=== PATIENT | female | born 1990 | race Native Hawaiian/Other Pacific Islander ===

== ENCOUNTER → 2018-10-14 | Outpatient (CLI) | payer OTHER ==
[2018-10-14 08:26] LABS: HEMATOCRIT 45.3 % (36.0-47.0); HEMOGLOBIN 14.8 g/dl (12.0-15.5); MEAN CORPUSCULAR HEMOGLOBIN 29.7 pg (27.0-33.0); MEAN CORPUSCULAR HGB CONC 32.7 g/dl (32.0-36.5); MEAN CORPUSCULAR VOLUME 90.8 fl (80.0-96.0); PLATELET COUNT, AUTOMATED 306 10^3/uL (150-450); RED BLOOD COUNT 4.99 10^6/uL (4.00-5.40)
[2018-10-14 08:55] LABS: ALBUMIN 3.8 GM/DL (3.2-5.2); ALT/SGPT 23 U/L (12-78); BILIRUBIN,TOTAL 0.7 MG/DL (0.2-1.0); BLOOD UREA NITROGEN 18 MG/DL (7-18); CALCIUM LEVEL 8.6 MG/DL (8.5-10.1); CARBON DIOXIDE LEVEL 30 MEQ/L (21-32); CHLORIDE LEVEL 103 MEQ/L (98-107); CHOLESTEROL LEVEL 210 MG/DL (<200); CHOLESTEROL RISK RATIO 2.837 (<5); CREATININE FOR GFR 0.71 MG/DL (0.55-1.30); FREE T3 2.6 PG/ML (2.2-4.0); FREE T4 1.11 NG/DL (0.76-1.46); GLOMERULAR FILTRATION RATE > 60.0 (>60); GLUCOSE, FASTING 103 MG/DL (70-100); HDL CHOLESTEROL 74 MG/DL (>40); LDL CHOLESTEROL 121 MG/DL (<100); NON-HDL-C 136 MG/DL; POTASSIUM SERUM 4.8 MEQ/L (3.5-5.1); SODIUM LEVEL 137 MEQ/L (136-145); THYROID STIMULATING HORMONE 0.208 uIU/ML (0.358-3.740); TOTAL PROTEIN 7.4 GM/DL (6.4-8.2); TRIGLYCERIDES LEVEL 75 MG/DL (<150)
--- NOTE | 2018-10-15 08:53 | REP ---
Clinical: Thyroid abnormality otherwise unspecified. Technique: Real time marcial scale and color ultrasound examination using linear high frequency and curved array transducers. Findings: The thyroid gland is relatively normal in contour, size, echogenicity. Isthmus measures 2.6 mm in width. Right lobe measures 5.0 x 1.6 x 1.7 cm and includes 5.8 x 3.9 x 5.3 mm and 6.4 x 6.0 x 4.8 mm hypoechoic mid/lower pole nodules which are otherwise nonspecific in appearance. Left thyroid lobe measures 4.5 x 1.7 x 1.3 cm without nodular or cystic changes. Impression: Two nonspecific vague hypoechoic/isoechoic nodules in the right lobe. Electronically Signed by Wilmer Fall MD 10/15/2018 08:44 A
== END ==
LOC: M RAD 07:10
PROVIDERS: ATTEND Family Medicine
DX: E04.1 Nontoxic single thyroid nodule (principal); N91.1 Secondary amenorrhea; I10 Essential (primary) hypertension; E78.00 Pure hypercholesterolemia, unspecified; E07.9 Disorder of thyroid, unspecified

== ENCOUNTER → 2019-01-24 | Outpatient (REF) | payer OTHER ==
[2019-01-24 13:39] LABS: APPEARANCE, URINE CLEAR (CLEAR); BACTERIA, URINE AUTO 1+ (NEGATIVE); BILIRUBIN, URINE AUTO NEGATIVE (NEGATIVE); BLOOD, URINE BLOOD 1+ (NEGATIVE); COLOR, URINE YELLOW (YELLOW); GLUCOSE, URINE (UA) AUTO NEGATIVE (NEGATIVE); KETONE, URINE AUTO NEGATIVE (NEGATIVE); LEUKOCYTE ESTERASE, URINE AUTO NEGATIVE (NEGATIVE); NITRITE, URINE AUTO NEGATIVE (NEGATIVE); PROTEIN, URINE AUTO NEGATIVE (NEGATIVE); RBC, URINE AUTO 0 /HPF (0-3); SPECIFIC GRAVITY URINE AUTO 1.005 (1.002-1.035); SQUAMOUS EPITHELIAL CELL UR AU 5 /HPF (0-6); UROBILINOGEN, URINE AUTO 0.2 mg/dL (0.0-2.0); WBC, URINE AUTO 0 /HPF (0-3)
== END ==
LOC: M LAB REF 13:11
PROVIDERS: ATTEND Nurse Practitioner Family
DX: R30.0 Dysuria (principal)

== ENCOUNTER → 2019-01-26 | Outpatient (CLI) | payer OTHER ==
[2019-01-26 18:08] LABS: HEMATOCRIT 45.6 % (36.0-47.0); HEMOGLOBIN 14.6 g/dl (12.0-15.5); MEAN CORPUSCULAR HEMOGLOBIN 29.7 pg (27.0-33.0); MEAN CORPUSCULAR VOLUME 92.7 fl (80.0-96.0); PLATELET COUNT, AUTOMATED 293 10^3/uL (150-450); RED BLOOD COUNT 4.92 10^6/uL (4.00-5.40); WHITE BLOOD COUNT 7.1 10^3/uL (4.0-10.0)
[2019-01-26 18:19] LABS: C REACTIVE PROTEIN QUANTITATIV < 0.30 MG/DL (0.00-0.30); HCG, SERUM QUANTITATIVE < 1.0 MIU/ML
[2019-01-26 19:09] LABS: ERYTHROCYTE SEDIMENTATION RATE 5 mm/hr (0-20)
== END ==
LOC: M LAB 16:20
PROVIDERS: ATTEND Family Medicine
DX: R91.8 Other nonspecific abnormal finding of lung field (principal)

== ENCOUNTER → 2019-01-27 | Outpatient (CLI) | payer OTHER ==
--- NOTE | 2019-01-27 11:27 | REP ---
PELVIC SONOGRAPHY: HISTORY: Lower abdominal pain. Pelvic and perineal pain. FINDINGS: Transabdominal and transvaginal scanning are included. Uterine dimensions are normal measured at 7.9 x 3.4 x 4.7 cm. There is a trace of endocervical fluid. Endometrial echo 0.4 cm thick. An IUD is seen in place in the uterine endometrium in what appears to be good position. Minimal of cul-de-sac fluid is noted consistent with physiologic fluid. The right ovary measures 5.0 x 2.6 x 3.0 cm. It contains a simple cyst measuring 2.6 x 2.4 x 3.1 cm. Normal Doppler flow is noted in the right ovary. Resistive index is 0.64. The left ovary measures 3.9 x 1.2 x 2.7 cm. It has a normal appearance. Its Doppler flow is normal as well. Resistive index in the left ovary is 0.52. IMPRESSION: IUD in place. 3.1 cm simple cyst right ovary. Physiologic fluid in the cul-de-sac. No significant morphologic abnormality. Electronically Signed by Amando Smith MD 01/27/2019 01:04 P
== END ==
LOC: M RAD 09:33
PROVIDERS: ATTEND Family Medicine
DX: R10.2 Pelvic and perineal pain (principal); N83.201 Unspecified ovarian cyst, right side; Z97.5 Presence of (intrauterine) contraceptive device

== ENCOUNTER → 2019-02-04 | Outpatient (CLI) | payer OTHER | LOC: M LAB 08:26 | PROVIDERS: ATTEND Family Medicine | DX: N83.299 Other ovarian cyst, unspecified side (principal) ==

== ENCOUNTER → 2019-06-02 | Outpatient (CLI) | payer OTHER ==
--- NOTE | 2019-06-02 21:02 | REP ---
LEFT FIRST TOE: Four views of the left first toe performed. There is no acute fracture, dislocation or intrinsic bone disease. IMPRESSION: No fracture or dislocation. Electronically Signed by Juve Anderson MD 06/03/2019 10:04 A
== END ==
LOC: M RAD 19:38
PROVIDERS: ATTEND Physician Assistant
DX: S90.112A Contusion of left great toe without damage to nail, initial encounter (principal); X58.XXXA Exposure to other specified factors, initial encounter; Y92.89 Other specified places as the place of occurrence of the external cause

== ENCOUNTER → 2019-08-23 | Outpatient (CLI) | payer OTHER ==
--- NOTE | 2019-08-23 13:05 | REP ---
Clinical: Right ovarian cyst. Comparison: 01/27/2019 . Technique: Transabdominal pelvic ultrasound followed by transvaginal examination for better evaluation of the endometrium and adnexa with color Doppler evaluation of the ovaries. Findings: Bladder is unremarkable and measures 7.9 x 6.2 x 2.1 cm . Normal anteverted uterus measures 6.4 x 3.0 x 4.6 cm . The endometrial complex measures 2.6 mm thickness. IUD identified in satisfactory position. No discrete uterine or endometrial abnormalities are appreciated. Bilateral ovaries are normal in appearance and vascularity without evidence for torsion. Right ovary measures 1.8 x 1.5 x 1.9 cm ; R I = 0.50 . Left ovary measures 2.8 x 1.2 x 2.2 cm ; R I = 0.54. Previously identified right ovarian cyst has resolved. No significant pelvic fluid or adnexal mass lesion . Impression: 1. Essentially normal pelvic ultrasound. No ovarian cyst. Electronically Signed by Wilmer Fall MD 08/23/2019 12:56 P
[2019-08-23 13:58] LABS: FREE T4 1.05 NG/DL (0.76-1.46); THYROID STIMULATING HORMONE 0.36 uIU/ML (0.358-3.740); TOTAL T3 85.3 NG/DL (60.0-181.0)
== END ==
LOC: M RAD 12:24
PROVIDERS: ATTEND Family Medicine
DX: E05.90 Thyrotoxicosis, unspecified without thyrotoxic crisis or storm (principal); N83.291 Other ovarian cyst, right side

== ENCOUNTER → 2019-10-09 | Outpatient (REF) | payer OTHER | LOC: M LAB REF 11:52 | PROVIDERS: ATTEND Physician Assistant Medical | DX: R50.9 Fever, unspecified (principal) ==

== ENCOUNTER → 2020-01-11 | Outpatient (REF) | payer OTHER | LOC: M LAB REF 12:21 | PROVIDERS: ATTEND Physician Assistant | DX: Z11.59 Encounter for screening for other viral diseases (principal) | CPT/HCPCS: 87070; 87486; 87581; 87633; 87798; U0002 ==

== ENCOUNTER 2020-10-19 02:10 | Emergency (ER) | payer OTHER ==
[~2020-10-19] VITALS: Ht 170.2 cm; Wt 67.8 kg
[2020-10-19] MEDS ORDERED: NITR100C2 PO (02:24)
[2020-10-19] MEDS: fentaNYL 100 MCG/2 ML INJECTION (J3010) IV PRN ×2 (02:32→04:29)
[2020-10-19] MEDS ORDERED: PROMETHAZINE INJ 25 MG/ML VIAL (J2550) IV ONE (02:45)
[2020-10-19 02:50] LABS: BASO % 0.1 % (0.0-1.0); EOS # 0.1 10^3/uL (0.0-0.5); EOS % 0.5 % (0.0-3.0); HEMATOCRIT 41.3 % (36.0-47.0); HEMOGLOBIN 13.7 g/dl (12.0-15.5); LYMPH # 1.4 10^3/uL (1.5-5.0); LYMPH % 9.4 % (24.0-44.0); MEAN CORPUSCULAR HEMOGLOBIN 29.2 pg (27.0-33.0); MEAN CORPUSCULAR HGB CONC 33.2 g/dl (32.0-36.5); MEAN CORPUSCULAR VOLUME 88.1 fl (80.0-96.0); MONO # 0.9 10^3/uL (0.0-0.8); MONO % 6.2 % (0.0-5.0); NEUTROPHILS # 12.2 10^3/uL (1.5-8.5); NEUTROPHILS % 83.5 % (36.0-66.0); PLATELET COUNT, AUTOMATED 275 10^3/uL (150-450); RED BLOOD COUNT 4.69 10^6/uL (4.00-5.40); WHITE BLOOD COUNT 14.6 10^3/uL (4.0-10.0)
[2020-10-19] MEDS ORDERED: ISOVUE-370 76% 100ML VIAL As Ordered ONE (02:56)
[2020-10-19] MEDS ORDERED: NS 1,000 ML IV ONE (03:00)
--- NOTE | 2020-10-19 03:14 | REPVR ---
PROCEDURE INFORMATION: Exam: XR Chest, 1 View Exam date and time: 10/19/2020 2:49 AM Age: 30 years old Clinical indication: Chest pain; Additional info: Right sided pain, pleuritic TECHNIQUE: Imaging protocol: XR of the chest Views: 1 view. COMPARISON: No relevant prior studies available. FINDINGS: Lungs: Unremarkable. No consolidation. Pleural space: Unremarkable. No pleural effusion. No pneumothorax. Heart/Mediastinum: Unremarkable. No cardiomegaly. Bones/joints: Unremarkable. Other findings: Rotation to the left. IMPRESSION: Negative rotated chest. Electronically signed by: Cayden Plummer On 10/19/2020 03:15:04 AM
[2020-10-19 03:15] LABS: ALT/SGPT 50 U/L (12-78); BILIRUBIN,DIRECT 0.1 MG/DL (0.0-0.2); BILIRUBIN,TOTAL 0.4 MG/DL (0.2-1.0); BLOOD UREA NITROGEN 19 MG/DL (7-18); CALCIUM LEVEL 8.3 MG/DL (8.5-10.1); CARBON DIOXIDE LEVEL 26 MEQ/L (21-32); CHLORIDE LEVEL 105 MEQ/L (98-107); CREATININE FOR GFR 0.84 MG/DL (0.55-1.30); GLOMERULAR FILTRATION RATE > 60.0 (>60); GLUCOSE, FASTING 77 MG/DL (70-100); LIPASE 122 U/L (73-393); POTASSIUM SERUM 3.7 MEQ/L (3.5-5.1); SODIUM LEVEL 141 MEQ/L (136-145); TOTAL PROTEIN 7.4 GM/DL (6.4-8.2)
[2020-10-19 03:27] LABS: HCG, SERUM QUALITATIVE NEGATIVE (NEGATIVE)
--- NOTE | 2020-10-19 04:32 | REPVR ---
PROCEDURE INFORMATION: Exam: CT Abdomen And Pelvis With Contrast Exam date and time: 10/19/2020 2:23 AM Age: 30 years old Clinical indication: Abdominal pain; Localized; Right; Additional info: Right sided abdominal pain TECHNIQUE: Imaging protocol: Computed tomography of the abdomen and pelvis with intravenous contrast. Radiation optimization: All CT scans at this facility use at least one of these dose optimization techniques: automated exposure control; mA and/or kV adjustment per patient size (includes targeted exams where dose is matched to clinical indication); or iterative reconstruction. Contrast material: ISO; Contrast volume: 100 ml; Contrast route: INTRAVENOUS (IV); COMPARISON: US PELVIC NON-OB COMPLETE 08/23/2019 12:37 PM FINDINGS: Liver: Normal. No mass. Gallbladder and bile ducts: Normal. No calcified stones. No ductal dilation. Pancreas: Normal. No ductal dilation. Spleen: Normal. No splenomegaly. Adrenal glands: Normal. No mass. Kidneys and ureters: Normal. No hydronephrosis. Stomach and bowel: Mild stool throughout much of the colon. Appendix: A normal appendix is seen. Intraperitoneal space: Unremarkable. No free air. No significant fluid collection. Vasculature: Unremarkable. No abdominal aortic aneurysm. Lymph nodes: Unremarkable. No enlarged lymph nodes. Urinary bladder: Unremarkable as visualized. Reproductive: There is an IUD in the uterus. Adnexal venous varicosities, left greater than right with mildly enlarged left gonadal vein measuring 7 x 9 mm in diameter. Bones/joints: Unremarkable. No acute fracture. Soft tissues: Bilateral breast implants are in position. IMPRESSION: 1. IUD in the uterus. 2. Adnexal venous varicosities, left greater than right with slightly enlarged left gonadal vein which is nonspecific. 3. Otherwise negative CT abdomen/pelvis. A normal appendix is seen. No renal or ureteral calculi are evident and there is no evidence of obstructive uropathy. Electronically signed by: Cayden Plummer On 10/19/2020 04:32:25 AM
--- NOTE | 2020-10-19 05:49 | REPVR ---
PROCEDURE INFORMATION: Exam: US Abdomen, Limited; Right Upper Quadrant Exam date and time: 10/19/2020 5:02 AM Age: 30 years old Clinical indication: Abdominal pain; Epigastric; Additional info: Ruq pain, epigastric pain TECHNIQUE: Imaging protocol: US abdomen. Real time ultrasound with image documentation. Limited exam focused on the right upper quadrant. COMPARISON: CT ABD/PEL W/IV CONTRAST ONLY 10/19/2020 4:06 AM FINDINGS: Liver: Normal. No masses. Gallbladder: Normal. No gallstones. There is no gallbladder wall thickening. Common bile duct: The CBD is mildly dilated measuring 7 mm. Pancreas: Visualized pancreas is unremarkable. Distal tail of the pancreas is obscured by bowel gas. Right kidney: The right kidney measures 11.5 x 4.6 x 3.8 cm. There is no right renal mass, stone, cyst or hydronephrosis. IMPRESSION: 1. Mildly dilated CBD at 7 mm. Correlation with LFTs and bilirubin level is needed. MRI with MRCP may be obtained for further evaluation. 2. No cholelithiasis or sonographic evidence of cholecystitis. Electronically signed by: Jose Guadalupe Moon On 10/19/2020 05:49:45 AM
[2020-10-19] MEDS ORDERED: OXYMETAZOLINE 0.05% NASAL SPRAY (AFRIN) ONE ×2 (06:15)
[2020-10-19] MEDS ORDERED: NS 500 ML IV ONE (07:00)
--- NOTE | 2020-10-19 10:02 | REPVR ---
PROCEDURE INFORMATION: Exam: MR Abdomen Without Contrast Exam date and time: 10/19/2020 9:55 AM Age: 30 years old Clinical indication: Abdominal pain; Other: Dilated common bile duct, ruq pain TECHNIQUE: Imaging protocol: MR of the abdomen without contrast. 3D rendering (Not supervised by radiologist): MIP reconstructed images were created by the technologist. COMPARISON: 1. CT ABD/PEL W/IV CONTRAST ONLY 10/19/2020 4:06 AM 2. GALLBLADDER US 10/19/2020 5:07:13 AM FINDINGS: Liver: No mass. Gallbladder and bile ducts: The common bile duct measures 7.7 mm. No ductal calculi identified. Unremarkable gallbladder. Pancreas: Unremarkable. No mass or ductal dilation. Spleen: Unremarkable. No splenomegaly. Adrenals: Unremarkable. No mass. Kidneys and ureters: Unremarkable. No solid mass. No hydronephrosis. Stomach and bowel: Visualized stomach and intestines are unremarkable. Intraperitoneal space: No free fluid. Arteries: No abdominal aortic aneurysm. Veins: Prominent left gonadal vein redemonstrated. Bones/joints: Bilateral partially imaged mammary implants are present. Soft tissues: Unremarkable. IMPRESSION: Mild extrahepatic biliary ductal dilatation, no ductal calculus. Electronically signed by: Abhijit Luna On 10/19/2020 10:02:54 AM
[2020-10-19 11:25] LABS: BASO % 0.3 % (0.0-1.0); EOS # 0.2 10^3/uL (0.0-0.5); EOS % 3.3 % (0.0-3.0); HEMATOCRIT 41.3 % (36.0-47.0); HEMOGLOBIN 13.4 g/dl (12.0-15.5); LYMPH # 1.5 10^3/uL (1.5-5.0); LYMPH % 22.7 % (24.0-44.0); MEAN CORPUSCULAR HEMOGLOBIN 29.1 pg (27.0-33.0); MEAN CORPUSCULAR HGB CONC 32.4 g/dl (32.0-36.5); MEAN CORPUSCULAR VOLUME 89.6 fl (80.0-96.0); MONO # 0.7 10^3/uL (0.0-0.8); MONO % 11.1 % (0.0-5.0); NEUTROPHILS % 62.4 % (36.0-66.0); PLATELET COUNT, AUTOMATED 259 10^3/uL (150-450); RED BLOOD COUNT 4.61 10^6/uL (4.00-5.40); WHITE BLOOD COUNT 6.4 10^3/uL (4.0-10.0)
[2020-10-19] MEDS ORDERED: ZOFR4TAB16 PO (13:06)
[2020-10-19 13:10] VITALS: BP 105/59
[2020-10-19] MEDS ORDERED: ONDANSETRON 4 MG ORAL DISINTEGRATING TAB PO ONE (13:15)
== END 2020-10-19 13:11 | disposition home or self-care (01) ==
LOC: M ED 02:10
DX: K80.51 Calculus of bile duct without cholangitis or cholecystitis with obstruction (principal); K21.9 Gastro-esophageal reflux disease without esophagitis; Z79.899 Other long term (current) drug therapy; Z88.5 Allergy status to narcotic agent
CPT/HCPCS: 71045; 74177; 74181; 76705; 80048; 80076; 81001; 83605; 83690; 84703; 85025; 93041; 96361; 96374; 96375; 96376; 99285; J3010; Q9967

== ENCOUNTER → 2020-11-09 | Outpatient (CLI) | payer OTHER ==
[~2020-11-09] MED LIST: NITR100C2 PO; ZOFR4TAB16 PO
[2020-11-09 16:25] LABS: BASO % 0.4 % (0.0-1.0); EOS # 0.3 10^3/uL (0.0-0.5); EOS % 3.5 % (0.0-3.0); HEMATOCRIT 44.7 % (36.0-47.0); HEMOGLOBIN 14.4 g/dl (12.0-15.5); LYMPH # 2.3 10^3/uL (1.5-5.0); LYMPH % 29.5 % (24.0-44.0); MEAN CORPUSCULAR HEMOGLOBIN 29.8 pg (27.0-33.0); MEAN CORPUSCULAR HGB CONC 32.2 g/dl (32.0-36.5); MEAN CORPUSCULAR VOLUME 92.5 fl (80.0-96.0); MONO # 0.5 10^3/uL (0.0-0.8); MONO % 6.8 % (0.0-5.0); NEUTROPHILS # 4.6 10^3/uL (1.5-8.5); NEUTROPHILS % 59.5 % (36.0-66.0); PLATELET COUNT, AUTOMATED 277 10^3/uL (150-450); RED BLOOD COUNT 4.83 10^6/uL (4.00-5.40); WHITE BLOOD COUNT 7.7 10^3/uL (4.0-10.0)
[2020-11-09 16:56] LABS: ERYTHROCYTE SEDIMENTATION RATE 4 mm/hr (0-20)
[2020-11-09 17:04] LABS: ALBUMIN 4.2 GM/DL (3.2-5.2); ALT/SGPT 21 U/L (12-78); AMYLASE 51 U/L (25-115); BILIRUBIN,TOTAL 0.3 MG/DL (0.2-1.0); BLOOD UREA NITROGEN 15 MG/DL (7-18); CALCIUM LEVEL 8.6 MG/DL (8.5-10.1); CARBON DIOXIDE LEVEL 30 MEQ/L (21-32); CHLORIDE LEVEL 104 MEQ/L (98-107); CREATININE FOR GFR 0.87 MG/DL (0.55-1.30); GLOMERULAR FILTRATION RATE > 60.0 (>60); GLUCOSE, FASTING 118 MG/DL (70-100); LIPASE 159 U/L (73-393); POTASSIUM SERUM 4.5 MEQ/L (3.5-5.1); SODIUM LEVEL 137 MEQ/L (136-145); THYROID STIMULATING HORMONE 0.127 uIU/ML (0.358-3.740); TOTAL PROTEIN 7.5 GM/DL (6.4-8.2)
[2020-11-13 16:25] LABS: THYROID PEROXIDASE ANTIBODY 29.6 U/ML (<60.0)
[2020-11-15 12:10] LABS: THRYOGLOBULIN ANTIBODIES (ATA) < 1.0 IU/mL (0.0-0.9)
== END ==
LOC: M LAB 15:42
PROVIDERS: ATTEND Family Medicine
DX: K83.8 Other specified diseases of biliary tract (principal); F41.8 Other specified anxiety disorders

== ENCOUNTER → 2020-12-14 | Outpatient (CLI) | payer OTHER ==
--- NOTE | 2020-12-14 10:18 | REP ---
INDICATION: RUQ ABD PAIN OTH DISEASE OF BILIARY TRACT. COMPARISON: Comparison sonography October 19, 2020.. TECHNIQUE/RADIOTRACER AND DOSE: 6.6 mCi of Technetium-99m mebrofenin was injected and sequential anterior images are acquired. 65 minutes after the mebrofenin injection, the patient consumed 8 ounces Ensure and an additional 60 minutes of imaging was acquired. Regions of interest are plotted around the gallbladder. FINDINGS: The initial hepatocellular parenchymal uptake phase is normal and homogeneous. Intra- and extra-hepatic bile ducts are labeled by the 10-minute image. The gallbladder is first labeled on the 15-minute image. There is normal washout from the liver parenchyma into the gallbladder and small intestine on subsequent images. The gallbladder ejection fraction is 76%. Values greater than 35% are considered normal with this technique. IMPRESSION: Normal hepatobiliary scan and normal gallbladder ejection fraction. <Electronically signed by Benedicto Smith > 12/14/20 [id number]
== END ==
LOC: M RAD 07:44
PROVIDERS: ATTEND Family Medicine
DX: K83.8 Other specified diseases of biliary tract (principal)
CPT/HCPCS: 78227; A9537

== ENCOUNTER → 2020-12-18 | Outpatient (CLI) | payer OTHER ==
[~2020-12-18] MED LIST changes: +E-Z-GAS II EFFERVESCENT PACKET (SODIUM BICARB./CITRIC ACID/SIMETHICONE) As Ordered ONE; +E-Z-HD 98% w/w 340GM SUSP BTL As Ordered ONE; +E-Z-PAQUE 96% w/w SUSP 176GM BTL As Ordered ONE
--- NOTE | 2020-12-18 14:01 | REP ---
INDICATION: ABD PAIN. COMPARISON: None TECHNIQUE: This procedure was performed by Estephania Aquino [facility], under the direct supervision of Dr. Smith. Images were reviewed with Dr. Smith prior to dictation. Liquid barium and gas producing crystals were given in the erect position, as well as liquid barium in the prone oblique position in order to perform a double contrast upper GI examination. FINDINGS: The mortgage sales manager film shows no organomegaly or pathological masses. The intestinal gas pattern is unremarkable. There is an IUD in the pelvis. The oral and pharyngeal stages of deglutition were unremarkable. Esophageal transport is prompt and efficient and there is no evidence of esophagitis, stricture, or mucosal ring. There is no evidence of a hiatal hernia. Gastroesophageal reflux was visualized inferior to the citlali. The stomach talamantes are normally outlined. The rugal folds are smooth and regular. There is no gastritis, neoplasm, or ulcerative disease. The duodenal talamantes are normally outlined. The mucosal folds are smooth and regular. There is no duodenitis, peptic ulcer disease or neoplasm. The visualized portion of the proximal small bowel appears normal in course and caliber. IMPRESSION: Gastroesophageal reflux visualized inferior to the citlali. 0.1 minutes of fluoroscopy time was utilized for this procedure. Some fluoroscopic images are performed with last image hold technology. These images require no additional radiation. <Electronically signed by Estephania Aquino > 12/18/20 [id number] <Electronically signed by Benedicto Smith > 12/18/20 [id number]
== END ==
LOC: M RAD 07:59
PROVIDERS: ATTEND Family Medicine
DX: K52.9 Noninfective gastroenteritis and colitis, unspecified (principal); R10.9 Unspecified abdominal pain

== ENCOUNTER → 2021-02-12 | Outpatient (CLI) | payer OTHER ==
[~2021-02-12] MED LIST changes: -E-Z-GAS II EFFERVESCENT PACKET (SODIUM BICARB./CITRIC ACID/SIMETHICONE) As Ordered ONE; -E-Z-HD 98% w/w 340GM SUSP BTL As Ordered ONE; -E-Z-PAQUE 96% w/w SUSP 176GM BTL As Ordered ONE
--- NOTE | 2021-02-12 10:01 | REP ---
INDICATION: THROITOXICOSIS COMPARISON: None. TECHNIQUE: Anderson scale and color evaluation of the thyroid gland using the linear high frequency transducer. FINDINGS: Thyroid gland is relatively normal in contour, vascularity and overall parenchymal echotexture. Isthmus measures 3 mm in width. Right lobe measures 5.7 x 1.7 x 1.3 cm and includes 7 x 8 x 6 mm and 9 x 8 x 7 mm mid/lower pole complex nodules. Left lobe measures 5.0 x 1.6 x 1.4 cm without nodule or abnormality. IMPRESSION: 1. Two complex subcentimeter nodules in the right lobe are nonspecific and corresponds to Ti-Rads TR2. <Electronically signed by Wilmer Fall > 02/12/21 [id number]
== END ==
LOC: M RAD 09:11
PROVIDERS: ATTEND Family Medicine
DX: E04.1 Nontoxic single thyroid nodule (principal); E05.90 Thyrotoxicosis, unspecified without thyrotoxic crisis or storm